=== PATIENT | male | born 1990 | race Caucasian/White ===

== ENCOUNTER 2023-12-21 10:35 | Emergency (ER) | payer OTHER, MEDICAID, SELFPAY ==
[2023-12-21] VITALS (10 sets, daily range): BP systolic 125–161; BP diastolic 80–90; PULSE 57–80; RESP 7–16; TEMP 36.8; O2SAT 94–100; BMI 24.8
--- NOTE | 2023-12-21 11:23 | ED_ITS ---
HPI - General Adult General Chief complaint: Abdominal Pain Stated complaint: upper r abd pain, lost 10lbs last week, sent by Time Seen by Provider: 12/21/23 11:20 History of Present Illness HPI narrative: 33-year-old gentleman with no significant medical history concerned about right upper quadrant abdominal pain. He has had pain in this area intermittently for the last 2 years initial workup included an ultrasound of the right upper quadrant that did not show any gallstones. He has intermittently had elevated liver enzymes during this. . Recently lost moderate amount of weight with significant effort. Over the last week he has gone to different type of diet focusing on macros had quite a bit more fat and he has lost an additional 10 lb this week without trying. He states that he has been having diarrhea. No vomiting, no fevers, chest pain, palpitations, dyspnea Review of Systems Review of Systems Narrative: Pertinent positive and negative findings as per HPI Exam Initial Vital Signs Initial Vital Signs: Vital Signs Temperature 98.3 F 12/21/23 10:45 Pulse Rate 69 12/21/23 10:45 Respiratory Rate 16 12/21/23 10:45 Blood Pressure 161/90 H 12/21/23 10:45 Pulse Oximetry 98 12/21/23 10:45 Oxygen Delivery Method Room Air 12/21/23 10:45 General: Healthy appearing, in no acute distress. Able to give a complete and coherent history. Well-nourished well-developed HEENT: Moist mucous membranes, normal sclera with reactive pupils, Respiratory: Lungs are clear to auscultation, no wheezing no rales no rhonchi. Full and symmetrical air movement Cardiac: Regular rate and rhythm no murmurs no bruits Abdomen: Soft, patient describes tenderness in the right upper quadrant that is not reproducible with palpation. No flank pain Skin: Warm and dry, no rashes Neurologic: Grossly neurologically intact with no obvious asymmetries or abnormalities Extremities: No trauma, well perfused Psych: Cooperative, appropriate insight and affect Course Orders Ordered: ED Orders 12/21/23 11:20 Complete Blood Count AUTO DIFF Stat Comprehensive Metabolic Panel Stat Lipase Stat 12/21/23 11:36 CT abdomen pelvis w con Stat Ondansetron HCl (Ondansetron 4 Mg/2 Ml Inj) 4 mg IV NOW PRN PRN Reason: Nausea And Vomiting Ondansetron HCl (Ondansetron 4 Mg Odt) 4 mg PO NOW PRN PRN Reason: Nausea And Vomiting Vital Signs Vital signs: Vital Signs - 8 hr 12/21/23 10:45 12/21/23 11:15 12/21/23 11:16 Temperature 98.3 F Pulse Rate 69 74 Respiratory Rate 16 14 Blood Pressure 161/90 H 127/82 Pulse Oximetry 98 94 Oxygen Delivery Method Room Air 12/21/23 11:16 12/21/23 11:30 12/21/23 11:30 Temperature Pulse Rate 80 70 Respiratory Rate 9 L 16 Blood Pressure 132/84 Pulse Oximetry 99 99 Oxygen Delivery Method 12/21/23 11:45 12/21/23 11:45 12/21/23 12:00 Temperature Pulse Rate 57 L 66 Respiratory Rate 12 7 L Blood Pressure 125/80 Pulse Oximetry 97 100 Oxygen Delivery Method Medical Decision Making Lab Data 12/21/23 11:20 12/21/23 11:20 Labs: Lab Results 12/21/23 Range/Units 11:20 WBC 9.4 (4.5-11.0) X10^3/uL RBC 5.32 (4.5-5.9) X10^6/uL Hgb 15.5 (13.5-17.5) g/dL Hct 45.2 (41-53) % MCV 85.1 (80-100) fL MCH 29.1 (26-34) PG MCHC 34.2 (30-36) % RDW 13.3 (11.6-14.8) % Plt Count 301 (150-400) X10^3/uL Neut % (Auto) 74.3 (50-75) % Lymph % (Auto) 20.1 L (25-40) % Davie % (Auto) 4.2 (3-14) % Eos % (Auto) 0.7 L (2-4) % Baso % (Auto) 0.7 (0-2) % Neut # (Auto) 7000 (3044-3701) /uL Lymph # (Auto) 1900 (9321-9127) /uL Davie # (Auto) 400 (0-900) /uL Eos # (Auto) 100 (0-450) /uL Baso # (Auto) 100 (0-100) /uL Sodium 139 (137-145) mmol/L Potassium 4.0 (3.4-5.1) mmol/L Chloride 104 (98-107) mmol/L Carbon Dioxide 25 (22-32) mmol/L BUN 13 (9-20) mg/dL Creatinine 0.97 (0.66-1.25) mg/dL Estimated GFR > 60 (>60) mL/min BUN/Creatinine Ratio 13.4 (6-22) Glucose 99 (70-100) mg/dL Calcium 9.5 (8.4-10.2) mg/dL Total Bilirubin 0.7 (0.2-1.3) mg/dL AST 24 (17-59) IU/L ALT 22 (<50) IU/L Alkaline Phosphatase 58 (38-126) U/L Total Protein 7.1 (6.3-8.2) g/dL Albumin 4.3 (3.5-5.0) g/dL Globulin 2.8 (1.7-4.1) g/dL Albumin/Globulin Ratio 1.5 (1.0-2.8) Lipase 134 (23-300) U/L Imaging Data CT scan - abdomen/pelvis: Radiologist's Impression: PROCEDURE: CT ABDOMEN PELVIS W CON INDICATIONS: Upper abdominal pain, 10 lb weight loss this week TECHNIQUE: After the administration of intravenous contrast, axial sections acquired from the lung bases to the pubic symphysis. Coronal and sagittal reformats were performed. For radiation dose reduction, the following was used: automated exposure control, adjustment of mA and/or kV according to patient size. COMPARISON: None. FINDINGS: Image quality: Diagnostic. Lower Chest: No significant findings. ABDOMEN: Liver: No solid mass. Gallbladder: No radiopaque gallstones or wall thickening. Biliary ducts: No biliary dilation. Pancreas: No ductal dilation. Spleen: Size is within normal limits. Adrenal Glands: No adrenal nodules. Kidneys and Ureters: No hydronephrosis. No solid mass. No complex renal cystic lesion which requires follow up. Stomach and Bowel: Normal colonic caliber, without significant wall thickening. Normal appendix. Peritoneum: No abnormal intraperitoneal fluid. No free air. Ventral Wall: No significant ventral hernia. Abdominal Nodes: No retroperitoneal or mesenteric adenopathy by size criteria. Vessels: Aorta and inferior vena cava are normal in size. PELVIS: Pelvic Organs: Unremarkable. Bladder: No bladder wall thickening, accounting for underdistention. Pelvic Nodes: No enlarged lymph nodes. Miscellaneous: No inguinal hernias are seen. Bones: No aggressive osseous abnormality. IMPRESSION: No findings to explain the patient's abdominal pain or fatty stools. No gallbladder or pancreatic pathology by CT. Dictated by: Gray Walsh M.D. on 12/21/2023 at 12:29 MDM Narrative Medical decision making narrative: CC: Right upper quadrant pain intermittent for 2 years significantly worse over the last 72 hours Complicating co-morbidities: Recent weight loss with effort initially, 10 lb weight loss in the last week without effort Data collected from: patient Social determinants of health that may influence the patients condition: Patient does live on [place] Differential considered: Cholecystitis, other gallbladder disease, doubt ascending cholangitis, pancreatic mass possible but unlikely, constipation Exam documented above, pertinent findings include: Exam is benign. No reproducible abdominal pain Lab Test results independently reviewed as above. Pertinent findings: CBC is unremarkable Chemistries are reassuring Imaging studies independently reviewed: CT scan of the abdomen shows no significant pathology. With independent review he does have quite a bit of stool through his entire transverse colon which could explain his upper abdominal pain. Discussion: 33-year-old gentleman with unexplained weight loss associated with dietary changes. Intermittent abdominal pain for 2 years with normal workup today and reassuring CT scan. No evidence of gallbladder disease or pancreatic abnormalities. Reassurance is given. We discussed the use of fiber to add bulk to his stool and MiraLax to help clean out his colon completely. Give that a try. No indication for additional imaging, lab work or hospitalization. We will encourage him to follow up with his primary care physician. Discharge Plan Departure Patient Disposition: Home Clinical Impression: Chronic upper abdominal pain Constipation Qualifiers: Constipation type: unspecified constipation type Qualified Code(s): K59.00 - Constipation, unspecified Instructions: DI for Constipation Activity Restrictions/Additional Instructions: Thank you for coming in today I am reassured that you do not have a life-threatening abnormality today. There is no specific gallbladder, liver, pancreas abnormality that would require hospitalization or additional workup. The wall of your colon looks nice and normal. Your colon, particularly the transverse colon in your upper abdomen, is moderately distended with stool and that might be causing some of the acute discomfort. I think eating a diet that has more fiber we will be helpful. You can certainly use the Benefiber and this afternoon I would recommend getting some MiraLax and having 1 scoop with a large glass of water every hour until your bowels start to move. I would recommend following up with your primary care physician regarding your chronic upper abdominal pain. Stand Alone Forms: Patient Portal/API
[2023-12-21 11:32] LABS: Add Manual Diff / Slide Review NO; Basophils Absolute Auto 100 /uL (0-100); Basophils Percent Auto 0.7 % (0-2); Eosinophils Absolute Auto 100 /uL (0-450); Eosinophils Percent Auto 0.7 % (2-4); Hematocrit 45.2 % (41-53); Hemoglobin 15.5 g/dL (13.5-17.5); Lymphocytes Absolute Auto 1900 /uL (1100-4500); Lymphocytes Percent Auto 20.1 % (25-40); Mean Corpuscular HGB Conc 34.2 % (30-36); Mean Corpuscular Hemoglobin 29.1 PG (26-34); Mean Corpuscular Volume 85.1 fL (80-100); Monocytes Absolute Auto 400 /uL (0-900); Monocytes Percent Auto 4.2 % (3-14); Neutrophils Absolute Auto 7000 /uL (1500-7000); Neutrophils Percent Auto 74.3 % (50-75); Platelet Count 301 X10^3/uL (150-400); Red Blood Cell Count 5.32 X10^6/uL (4.5-5.9); Red Cell Distribution Width 13.3 % (11.6-14.8); White Blood Cell Count 9.4 X10^3/uL (4.5-11.0)
--- NOTE | 2023-12-21 11:36 | DI.CT.S_ITS ---
PROCEDURE: CT ABDOMEN PELVIS W CON INDICATIONS: Upper abdominal pain, 10 lb weight loss this week TECHNIQUE: After the administration of intravenous contrast, axial sections acquired from the lung bases to the pubic symphysis. Coronal and sagittal reformats were performed. For radiation dose reduction, the following was used: automated exposure control, adjustment of mA and/or kV according to patient size. COMPARISON: None. FINDINGS: Image quality: Diagnostic. Lower Chest: No significant findings. ABDOMEN: Liver: No solid mass. Gallbladder: No radiopaque gallstones or wall thickening. Biliary ducts: No biliary dilation. Pancreas: No ductal dilation. Spleen: Size is within normal limits. Adrenal Glands: No adrenal nodules. Kidneys and Ureters: No hydronephrosis. No solid mass. No complex renal cystic lesion which requires follow up. Stomach and Bowel: Normal colonic caliber, without significant wall thickening. Normal appendix. Peritoneum: No abnormal intraperitoneal fluid. No free air. Ventral Wall: No significant ventral hernia. Abdominal Nodes: No retroperitoneal or mesenteric adenopathy by size criteria. Vessels: Aorta and inferior vena cava are normal in size. PELVIS: Pelvic Organs: Unremarkable. Bladder: No bladder wall thickening, accounting for underdistention. Pelvic Nodes: No enlarged lymph nodes. Miscellaneous: No inguinal hernias are seen. Bones: No aggressive osseous abnormality. IMPRESSION: No findings to explain the patient's abdominal pain or fatty stools. No gallbladder or pancreatic pathology by CT. Dictated by: Gray Walsh M.D. on 12/21/2023 at 12:29 Approved by: Gray Walsh M.D. on 12/21/2023 at 12:31
[2023-12-21 11:49] LABS: Alanine Aminotransferase 22 IU/L (<50); Albumin 4.3 g/dL (3.5-5.0); Albumin Globulin Ratio 1.5 (1.0-2.8); Alkaline Phosphatase 58 U/L (38-126); Aspartate Aminotransferase 24 IU/L (17-59); BUN Creatinine Ratio 13.4 (6-22); Bilirubin Total 0.7 mg/dL (0.2-1.3); Blood Urea Nitrogen 13 mg/dL (9-20); Calcium 9.5 mg/dL (8.4-10.2); Carbon Dioxide 25 mmol/L (22-32); Chloride 104 mmol/L (98-107); Estimated Glomerular Filt Rate > 60 mL/min (>60); Globulin 2.8 g/dL (1.7-4.1); Glucose 99 mg/dL (70-100); HEMOLYSIS < 15 (0-50); Lipase 134 U/L (23-300); Sodium 139 mmol/L (137-145); Total Protein 7.1 g/dL (6.3-8.2)
== END 2023-12-21 13:44 | disposition home or self-care (01) ==
PROVIDERS: Emergency Provider Emergency Medicine
DX: R10.10 Upper abdominal pain, unspecified (principal); K59.00 Constipation, unspecified
CPT/HCPCS: 36415; 74177; 80053; 83690; 85025; 99283; 99284; Q9967

== ENCOUNTER 2025-01-06 11:11 | Emergency (ER) | payer SELFPAY ==
[2025-01-06 11:15] VITALS: BP 156/94; PULSE 59; RESP 18; TEMP 36.9; O2SAT 99; BMI 26.4
--- NOTE | 2025-01-06 11:26 | ED_ITS ---
HPI - Eye Problem <Titi Colin PA-C - Last Filed: 01/06/25 12:20> General Chief complaint: Eye Problems Stated complaint: Left eye blurry Time Seen by Provider: 01/06/25 11:26 Source: patient Mode of arrival: Ambulatory History of Present Illness HPI Narrative: This is a 34-year-old male presents emergency department due to left eye irritation. He states that he may have scratched it about 2 days ago and yesterday when he removed his contact he noticed some irritation as well some blurred vision as well as ?halos? around lights. He was not reporting any significant throbbing pain to the left eye but does report some discomfort. Also felt mildly nauseous. He denies any fevers, discharge from eye, pain with the ocular movement, redness around the eye, or any other concerning signs or symptoms. Related Data Home Medications ?Medication ?Instructions ?Recorded ?Confirmed emtricitabine 200 mg-tenofovir 1 tab PO DAILY 05/27/24 05/27/24 disoproxil fumarate 300 mg tablet (Truvada) eszopiclone 1 mg tablet (Lunesta) 1 mg PO BEDTIME 04/3005/27/24 zinc gluconate 30 mg tablet 30 mg PO DAILY 05/27/24 Previous Rx's ?Medication ?Instructions ?Recorded ofloxacin 0.3 % eye drops 1 drp EYE-LEFT QID 5 days #5 mL 01/06/25 Allergies Allergy/AdvReac Type Severity Reaction Status Date / Time No Known Drug Allergies Allergy Unverified 01/06/25 11:20 Review of Systems <Titi Colin PA-C - Last Filed: 01/06/25 12:20> Review of Systems Narrative: GENERAL: Denies chills, fatigue, malaise, fever, sweats. HEENT: Left eye irritation and blurred vision RESPIRATORY: Denies dyspnea, cough, wheezing, hemoptysis, sputum. CARDIOVASCULAR: Denies chest pain, palpitations, orthopnea, edema, GASTROINTESTINAL: Denies nausea, vomiting, abdominal pain, diarrhea, constipation, melena. : Denies dysuria, frequency, incontinence, hematuria, urinary retention. MUSCULOSKELETAL: denies weakness, joint pain, or bony pain SKIN: Denies rash, skin lesions, or other NEUROLOGIC: Denies weakness, headache, numbness, change in speech, confusion, seizures, incoordination. PSYCHIATRIC: No concerning psychosocial issues. 12 point review of systems is negative except for those stated above Patient History <Titi Colin PA-C - Last Filed: 01/06/25 12:20> Family History Grandfather Cancer Social History marital status: unmarried,single Smoking Status: Never smoker alcohol intake: current caffeine: Yes Type(s) of exercise: aerobic and weight lifting frequency: 3-4 times per week Smoking Status: Never smoker Exam <Titi Colin PA-C - Last Filed: 01/06/25 12:20> Narrative Exam Narrative: GENERAL: Well-developed patient, in mild distress. HEAD: Atraumatic. Normocephalic. EYES: Pupils equal round and reactive. Extraocular motions intact. Mild erythema to the sclerae of the left eye. No discharge noted. No pain with extraocular movement. No erythema around the eye. IOP of 15.9. No dendritic lesions or obvious abnormalities on fluorescein staining. ENT: Nose without bleeding, purulent drainage. Throat without erythema, tonsillar hypertrophy or exudate. Airway patent. NECK: Trachea midline. Non tender EXTREMITIES: No edema or joint tenderness. NEURO: AOx3. Cranial nerves 2-12 intact SKIN: No rash or erythema of visible areas Initial Vital Signs Initial Vital Signs: Vital Signs Temperature 98.4 F 01/06/25 11:15 Pulse Rate 59 L 01/06/25 11:15 Respiratory Rate 18 01/06/25 11:15 Blood Pressure 156/94 H 01/06/25 11:15 Pulse Oximetry 99 01/06/25 11:15 Oxygen Delivery Method Room Air 01/06/25 11:15 <Mary Carmen De La Fuente DO - Last Filed: 01/06/25 18:26> Initial Vital Signs Initial Vital Signs: Vital Signs Temperature 98.4 F 01/06/25 11:15 Pulse Rate 59 L 01/06/25 11:15 Respiratory Rate 18 01/06/25 11:15 Blood Pressure 156/94 H 01/06/25 11:15 Pulse Oximetry 99 01/06/25 11:15 Oxygen Delivery Method Room Air 01/06/25 11:15 Course <Titi Colin PA-C - Last Filed: 01/06/25 12:20> Orders Ordered: Discontinued Medications Fluorescein Sodium (Fluorescein 1 Mg Strip) 1 mg EYE-LEFT NOW ONE Stop: 01/06/25 11:32 Last Admin: 01/06/25 11:35 Dose: 1 mg Documented By: JHOANA Fluorescein Sodium (Fluorescein 1 Mg Strip) 1 mg EYE-LEFT NOW ONE Stop: 01/06/25 12:09 Last Admin: 01/06/25 12:10 Dose: 1 mg Documented By: JHOANA Proparacaine HCl (Proparacaine 0.5% Ophth Sridevi) 1 drops EYE-LEFT NOW ONE Stop: 01/06/25 11:32 Last Admin: 01/06/25 11:35 Dose: 1 drops Documented By: JHOANA Vital Signs Vital signs: Vital Signs - 8 hr 01/06/25 11:15 01/06/25 12:19 Temperature 98.4 F 98.1 F Pulse Rate 59 L 60 Respiratory Rate 18 16 Blood Pressure 156/94 H 130/81 Pulse Oximetry 99 98 Oxygen Delivery Method Room Air Room Air <Mary Carmen De La Fuente, - Last Filed: 01/06/25 18:26> Orders Ordered: Discontinued Medications Fluorescein Sodium (Fluorescein 1 Mg Strip) 1 mg EYE-LEFT NOW ONE Stop: 01/06/25 11:32 Last Admin: 01/06/25 11:35 Dose: 1 mg Documented By: JHOANA Fluorescein Sodium (Fluorescein 1 Mg Strip) 1 mg EYE-LEFT NOW ONE Stop: 01/06/25 12:09 Last Admin: 01/06/25 12:10 Dose: 1 mg Documented By: JHOANA Proparacaine HCl (Proparacaine 0.5% Ophth Sridevi) 1 drops EYE-LEFT NOW ONE Stop: 01/06/25 11:32 Last Admin: 01/06/25 11:35 Dose: 1 drops Documented By: JHOANA Vital Signs Vital signs: Vital Signs - 8 hr 01/06/25 11:15 01/06/25 12:19 Temperature 98.4 F 98.1 F Pulse Rate 59 L 60 Respiratory Rate 18 16 Blood Pressure 156/94 H 130/81 Pulse Oximetry 99 98 Oxygen Delivery Method Room Air Room Air MDM - Eye Problem <Titi Colin PA-C - Last Filed: 01/06/25 12:20> MDM Narrative Medical decision making narrative: ED course: This is a 34-year-old male presenting this emergency department complaining of eye irritation and mildly blurred vision to the left eye after removing his contacts yesterday. Suspect corneal abrasion. IOP is within normal limits no evidence of dendritic lesions on exam. We will treat. The for possible corneal abrasion with antibiotic eyedrops. Does not describe any symptoms concerning for a detached retina. CC: Left eye irritation Complicating co-morbidities: None Data collected from: Previous notes Medical records reviewed: Patient was last seen in this emergency department roughly a year ago due to upper right abdominal pain. No pertinent medical history. Reassuring workup. Differential considered, but not limited to: Detached retina acute glaucoma, corneal abrasion Exam documented above, pertinent findings include: As above Lab Test results independently reviewed as above. Pertinent findings: None obtained Imaging studies independently reviewed: None obtained Scores Used: None MIPS Elements: None Consultations: None Treatments: None Re-evaluations: None Discussion: Discussed plan with the patient was comfortable with the plan Diagnosis: Corneal abrasion Disposition: see below, along with detailed discharge instructions that have been reviewed with patient as well as indications for ED re-evaluation and additional outpatient follow up Discharge Plan Departure Patient Disposition: Home Clinical Impression: Corneal abrasion Activity Restrictions/Additional Instructions: Thank you for coming to the [facility] Emergency Department today. As we discussed you are overall reassuring exam today. Please use the antibiotic eyedrops as prescribed. Please return to the emergency department if you develop any sensation of a ?curtain going over your vision?, significant pain, or any other concerning signs or symptoms. I hope you feel better soon. Please follow up with your primary care provider within a week if your symptoms continue. If you do not have a primary care provider please contact the [facility] Resource line at [phone]. They will ask some questions about your medical history and help you get set up with a provider in the community. Prescriptions: New ofloxacin 0.3 % drops 1 drp EYE-LEFT QID 5 Days Qty: 5 0RF No Action emtricitabine-tenofovir (TDF) [Truvada] 200-300 mg tablet 1 tab PO DAILY eszopiclone [Lunesta] 1 mg tablet 1 mg PO BEDTIME zinc gluconate 30 mg tablet 30 mg PO DAILY Referrals: Selvin Cai PA-C [Primary Care Provider, Medical] Stand Alone Forms: Patient Portal/API ED Sign-out <Mary Carmen De La Fuente, - Last Filed: 01/06/25 18:26> Cosign ED Attending Cosignature Attestation: I was immediately available in the department for consultation.
[2025-01-06] MEDS: FLUORESCEIN 1 MG STRIP EYE-LEFT ×2 (11:35→12:10)
[2025-01-06] MEDS: PROPARACAINE 0.5% OPHTH SOL 1 DROPS EYE-LEFT (11:35)
[2025-01-06 12:19] VITALS: BP 130/81; PULSE 60; RESP 16; TEMP 36.7; O2SAT 98
== END 2025-01-06 12:31 | disposition home or self-care (01) ==
PROVIDERS: Emergency Provider Physician Assistant Medical; PCP Physician Assistant
DX: S05.02XA Injury of conjunctiva and corneal abrasion without foreign body, left eye, initial encounter (principal)
CPT/HCPCS: 99282